=== PATIENT | female | born 1985 | race Two or more races ===

== ENCOUNTER 2024-10-25 20:46 | Emergency (ER) | payer MEDICAID, OTHER ==
[~2024-10-25] VITALS: Ht 162.6 cm; Wt 100.0 kg
[2024-10-25 20:52] VITALS: TEMP 37.1
[2024-10-25] MEDS: ONDANSETRON HCL 4MG/2ML INJ IV ONE (21:31)
[2024-10-25] MEDS: MORPHINE SULFATE 4 MG/ML INJ (FOR IV/IM USE) IV ONE (21:32)
[2024-10-25] MEDS: SODIUM CHLORIDE 0.9% 1,000 ML IV ONE (21:37)
[2024-10-25 22:06] VITALS: O2SAT 100
[2024-10-25] MEDS ORDERED: HYDROMORPHONE HCL/PF 2MG/ML INJ IV ONE ×2 (22:15→22:30)
[2024-10-25] MEDS: HYDROMORPHONE HCL/PF 1MG/ML INJ IV NR (22:45)
[2024-10-25] MEDS: PROPOFOL 200MG/20ML VIAL IV ONE (22:46)
[2024-10-25 23:08] LABS: BASOPHILS % 0.4 % (0.0-2.0); EOSINOPHILS % 0.2 % (0.0-5.0); HEMATOCRIT. 41.6 % (36.0-48.0); HEMOGLOBIN. 13.7 g/dL (12.0-16.0); LYMPHOCYTES % 10.3 % (20.0-50.0); MEAN CORPUSCULAR HEMOGLOBIN 30.3 pg (28.0-32.0); MEAN CORPUSCULAR VOLUME 91.7 fL (81.0-99.0); MONOCYTES % 4.6 % (2.0-8.0); NEUTROPHILS % 84.5 % (40.0-76.0); PLATELET 340 x1000/uL (130-400); RED BLOOD CELL COUNT 4.54 mill/uL (4.2-5.4); RED CELL DISTRIBUTION WIDTH 12.9 % (11.6-14.6); WHITE BLOOD COUNT 14.4 x1000/uL (4.5-11.0)
[2024-10-25 23:16] LABS: CHLORIDE 109 mEq/L (98-107); POTASSIUM 3.6 mEq/L (3.5-5.1); SODIUM 137 mEq/L (136-145)
[2024-10-25 23:17] LABS: CALCIUM 8.8 mg/dL (8.7-10.4); CARBON DIOXIDE 20 mEq/L (21-32)
[2024-10-25 23:18] LABS: PROTHROMBIN TIME 10.6 sec (9.6-11.0)
[2024-10-25 23:20] LABS: HCG SCREEN NEGATIVE
[2024-10-25 23:22] LABS: CREATININE 0.8 mg/dL (0.6-1.0); GLUCOSE 111 mg/dL (70-105); UREA NITROGEN BLOOD 13 mg/dL (9-23)
[2024-10-25] MEDS ORDERED: HYDR-4001 MT (23:47)
[2024-10-25] MEDS ORDERED: IBUP-1525 MT (23:47)
[2024-10-25] MEDS ORDERED: ONDA4TAB50 MT (23:47)
[2024-10-26] VITALS: BP 129/76; PULSE 90; RESP 19; O2SAT 99
== END 2024-10-26 00:52 | disposition home or self-care (01) ==
LOC: ER 20:46
DX: S82.831A Other fracture of upper and lower end of right fibula, initial encounter for closed fracture (principal); Z79.899 Other long term (current) drug therapy; Z98.890 Other specified postprocedural states; X58.XXXA Exposure to other specified factors, initial encounter; Y93.61 Activity, american tackle football; Y92.89 Other specified places as the place of occurrence of the external cause; Y99.8 Other external cause status
CPT/HCPCS: 80048; 84703; 85025; 85610; 36415; 73600; 73610; 27810; 96361; 96374; 99152; 99285; J2405; J2704; J1171; J2270; J7030; Z7610; 96375